=== PATIENT | male | born 1985 | race Caucasian/White ===

== ENCOUNTER 2017-10-28 06:53 | Emergency (ER) | payer OTHER ==
[~2017-10-28] VITALS: Ht 170.2 cm; Wt 89.0 kg
[~2017-10-28 06:53] MED LIST: KEFLEX500 MG PO; LATUDA20 MG PO
[2017-10-28 08:11] VITALS: BP 151/96
== END 2017-10-28 08:25 | disposition home or self-care (01) ==
LOC: EME 06:53
DX: S51.812A Laceration without foreign body of left forearm, initial encounter (principal); W26.0XXA Contact with knife, initial encounter; Z23 Encounter for immunization; F84.5 Asperger's syndrome; F42.9 Obsessive-compulsive disorder, unspecified; F90.9 Attention-deficit hyperactivity disorder, unspecified type; F17.200 Nicotine dependence, unspecified, uncomplicated
CPT/HCPCS: 99281; 99285